=== PATIENT | male | born 1980 | race Two or more races ===

== ENCOUNTER → 2017-10-02 | Outpatient (CLI) | payer BC ==
[2017-10-02 13:19] LABS: Hepatitis B Surface Antibody Negative
[2017-10-02 13:30] LABS: Hepatitis B Surface Antigen Negative (Negative)
[2017-10-02 13:56] LABS: Hepatitis A Total Antibody Negative; Hepatitis C Antibody Negative (Negative)
[2017-10-02 13:57] LABS: Hepatitis B Core Total AB Negative
[2017-10-03 04:08] LABS: RPR Non Reactive (Non Reactive)
== END | disposition home or self-care (01) ==
LOC: LAB 09:18
PROVIDERS: ATTEND Physician Assistant
DX: Z00.00 Encounter for general adult medical examination without abnormal findings (principal)
CPT/HCPCS: 36415; 86592; 86703; 86704; 86706; 86708; 86803; 87340

== ENCOUNTER 2020-01-30 09:19 | Emergency (ER) | payer BC ==
[~2020-01-30] VITALS: Ht 177.8 cm; Wt 104.3 kg
[2020-01-30 09:35] VITALS: BP 169/110
== END 2020-01-30 11:36 | disposition home or self-care (01) ==
LOC: ER 09:19
DX: J06.9 Acute upper respiratory infection, unspecified (principal); F41.9 Anxiety disorder, unspecified; Z20.828 Contact with and (suspected) exposure to other viral communicable diseases
CPT/HCPCS: 71045; 87070; 87635; 87804; 87880; 93005

== ENCOUNTER 2020-11-22 18:09 | Emergency (ER) | payer BC ==
[~2020-11-22] VITALS: Ht 177.8 cm; Wt 117.9 kg
[2020-11-22 18:10] VITALS: BP 198/103
[2020-11-22] MEDS ORDERED: traMADol HCL 50 MG TAB PO ONE (20:15)
== END 2020-11-22 21:16 | disposition home or self-care (01) ==
LOC: ER 18:09
DX: R07.89 Other chest pain (principal); M54.5 Low back pain
CPT/HCPCS: 71046; 72100

== ENCOUNTER → 2023-12-04 | Outpatient (CLI) | payer BC ==
[2023-12-04 08:23] LABS: Urine Bacteria None Seen /hpf (None Seen)
[2023-12-04 08:54] LABS: Urine Blood Negative /uL (Negative); Urine Clarity Clear (Clear); Urine Color Yellow (Yellow); Urine Mucus FEW (None Seen); Urine Protein, UAD 1+ (Negative); Urine Specific Gravity 1.025 (1.001-1.035); Urine Urobilinogen Normal (Negative); Urine WBC 2 /hpf (0 - 3); Urine pH 6.5 (5.0-9.0)
[2023-12-04 09:06] LABS: Alanine Aminotransferase 36 U/L (7-40); Albumin 4.5 g/dL (3.2-4.8); Alkaline Phosphatase 85 U/L (46-116); Anion Gap 7 (5-15); Aspartate Aminotransferase 24 U/L (13-40); BUN/Creatinine Ratio 12.8 (10.0-20.0); Blood Urea Nitrogen 12 mg/dL (9-23); Calcium 9.7 mg/dL (8.5-10.1); Carbon Dioxide 26 mmol/L (20-30); Chloride 107 mmol/L (98-107); Glucose 106 mg/dL (74-106); Potassium 3.9 mmol/L (3.5-5.1); Sodium 140 mmol/L (136-145)
[2023-12-04 09:07] LABS: Bilirubin, Total 0.7 mg/dL (0.2-1.0); Total Protein 7.8 g/dL (5.7-8.2)
== END | disposition home or self-care (01) ==
LOC: LAB 08:13
PROVIDERS: ATTEND Internal Medicine
DX: I10 Essential (primary) hypertension (principal); R79.89 Other specified abnormal findings of blood chemistry; R82.90 Unspecified abnormal findings in urine; R73.03 Prediabetes
CPT/HCPCS: 36415; 80053; 81001

== ENCOUNTER → 2024-01-22 | Outpatient (CLI) | payer BC ==
[2024-01-22 10:25] LABS: Carbon Dioxide 28 mmol/L (20-30); Chloride 106 mmol/L (98-107); Potassium 3.2 mmol/L (3.5-5.1)
[2024-01-22 10:26] LABS: Anion Gap 6 (5-15); Sodium 140 mmol/L (136-145)
[2024-01-22 10:27] LABS: Calcium 9.6 mg/dL (8.5-10.1)
[2024-01-22 10:31] LABS: Glucose 106 mg/dL (74-106)
[2024-01-22 10:32] LABS: BUN/Creatinine Ratio 17.6 (10.0-20.0); Blood Urea Nitrogen 18 mg/dL (9-23)
== END | disposition home or self-care (01) ==
LOC: LAB 09:31
PROVIDERS: ATTEND Internal Medicine
DX: I10 Essential (primary) hypertension (principal); R53.83 Other fatigue
CPT/HCPCS: 36415; 80048

== ENCOUNTER → 2024-01-22 | Outpatient (CLI) | payer BC | END | disposition home or self-care (01) | LOC: XYW 10:37 | PROVIDERS: ATTEND Student in an Organized Health Care Education/Training Program | DX: I11.9 Hypertensive heart disease without heart failure (principal) | CPT/HCPCS: 93306 ==

== ENCOUNTER → 2024-02-19 | Outpatient (CLI) | payer BC ==
[2024-02-19 12:07] LABS: Chloride 106 mmol/L (98-107); Potassium 3.4 mmol/L (3.5-5.1); Sodium 140 mmol/L (136-145)
[2024-02-19 12:08] LABS: Anion Gap 5 (5-15); Carbon Dioxide 29 mmol/L (20-30)
[2024-02-19 12:09] LABS: Calcium 9.2 mg/dL (8.7-10.4)
[2024-02-19 12:13] LABS: Glucose 98 mg/dL (74-106)
[2024-02-19 12:14] LABS: BUN/Creatinine Ratio 13.6 (10.0-20.0); Blood Urea Nitrogen 15 mg/dL (9-23); Magnesium 1.7 mg/dL (1.6-2.6)
== END | disposition home or self-care (01) ==
LOC: LAB 10:58
PROVIDERS: ATTEND Internal Medicine
DX: I10 Essential (primary) hypertension (principal); E87.6 Hypokalemia
CPT/HCPCS: 36415; 80048; 83735

== ENCOUNTER → 2024-05-06 | Outpatient (CLI) | payer BC ==
[2024-05-06 15:41] LABS: Chloride 103 mmol/L (98-107); Potassium 3.2 mmol/L (3.5-5.1); Sodium 139 mmol/L (136-145)
[2024-05-06 15:42] LABS: Anion Gap 8 (5-15); Carbon Dioxide 28 mmol/L (20-31)
[2024-05-06 15:43] LABS: Calcium 9.8 mg/dL (8.7-10.4)
[2024-05-06 15:47] LABS: Glucose 95 mg/dL (74-106)
[2024-05-06 15:48] LABS: BUN/Creatinine Ratio 17.1 (10.0-20.0); Blood Urea Nitrogen 19 mg/dL (9-23)
== END | disposition home or self-care (01) ==
LOC: LAB 14:52
PROVIDERS: ATTEND Internal Medicine Cardiovascular Disease
DX: I10 Essential (primary) hypertension (principal)
CPT/HCPCS: 36415; 80048

== ENCOUNTER → 2024-06-03 | Outpatient (CLI) | payer BC | END | disposition home or self-care (01) | LOC: Rad HDHVI 16:08 | PROVIDERS: ATTEND Internal Medicine Cardiovascular Disease | DX: R94.31 Abnormal electrocardiogram [ECG] [EKG] (principal); I50.9 Heart failure, unspecified | CPT/HCPCS: 93306 ==

== ENCOUNTER → 2024-07-08 | Outpatient (CLI) | payer BC ==
[~2024-07-08] VITALS: Ht 177.8 cm; Wt 131.5 kg
== END | disposition home or self-care (01) ==
LOC: Rad HDHVI 09:33
PROVIDERS: ATTEND Internal Medicine Cardiovascular Disease
DX: I11.0 Hypertensive heart disease with heart failure (principal); I50.33 Acute on chronic diastolic (congestive) heart failure; E78.5 Hyperlipidemia, unspecified; R60.0 Localized edema; R53.83 Other fatigue; R73.03 Prediabetes; Z82.49 Family history of ischemic heart disease and other diseases of the circulatory system
CPT/HCPCS: 78452; 93017; 96374; A9500